=== PATIENT | female | born 1960 | race Caucasian/White ===

== ENCOUNTER → 2016-10-13 | Outpatient (CLI) | payer OTHER ==
[~2016-10-13] MED LIST: ADVAIR 250-501 EACH; ALBUTEROL17 GM; ALBUTEROL17 GM INH; ASPIRIN EC81 M1 PO; BACTRIM DS TABL1 TAB PO; COMBIVENT14.7 GM INH; FISH OIL300 MG PO; FLEXERIL10 MG PO; HYCODAN60 ML 5MG/ PO; HYDROCODON-ACE1 EAC4; HYDROCODONE PO; KLONOPIN1 MG PO; NEURONTIN300 MG; NICOTINE PATCH1 EACH TD; OXYGEN INH; PREDNISONE PO; PREDNISONE10 MG PO; PRINIVIL20 M1 PO; PROZAC PO; VITAMIN B12; VITAMIN D400 UNI2 PO; VOLTAREN50 MG PO; VOLTAREN75 MG PO; ZITHROMAX PO
--- NOTE | ~2016-10-13 | MY30 ---
[facility] A Service of [facility] RADIOLOGY TEXT RESULTS PATIENT: ALEX MORAN LOCATION: [facility] : 64 UNIT #: [id number] AGE: [address]: Robin Russell MD SEX: F ORDER DR: [id number] [address] [address] [id number] O MR#: [id number] Acc #: [id number] NAME: ALEX MORAN : 1960 SEX: F STUDY DATE/TIME: 10/13/2016 11:27 UNIT: [facility] ROOM: STUDY DESCRIPTION: MY SCREEN LETICIA BILAT DIGITAL Attending Physician: Robin Russell M.D. Referring Physician: Robin Russell M.D. Ordering Physician: Robin Russell M.D. Primary Care Physician: Robin Russell M.D. MEDICAL IMAGING REPORT This report is preliminary unless electronic signature is present. EXAM Digital screening mammogram, 10/13/2016, [facility]. HISTORY 56-year-old woman, no family history of breast cancer. History of ovarian cancer in mother, postmenopausal. Annual screen. COMPARISON Comparison mammograms date to 02/22/2009, with most recent screening comparison, 10/08/2015. FINDINGS Digital imaging of each breast was completed utilizing a two-view examination of each breast in craniocaudal and mediolateral-oblique projections. Review and interpretation of digital mammograms include a second review in conjunction with FDA-approved CAD device. There is a normal parenchymal presentation bilaterally consistent with the patient's age. There are no breast masses imaged and no parenchymal asymmetry is visualized. There are no suspicious microcalcifications and I see no focal architectural disturbance. IMPRESSION Negative screening digital mammogram. One-year followup recommended. Patients over the age of 40 are entered into a reminder system with target due date for the next mammogram. A result letter will also be sent to the patient. BIRADS: 1 Negative. [facility] A Service of [facility] RADIOLOGY TEXT RESULTS PATIENT: ALEX MORAN LOCATION: [facility] : 64 UNIT #: [id number] AGE: [address]: Robin Russell MD SEX: F ORDER DR: Dictated by... Oziel Castro M.D. THIS IS AN ELECTRONICALLY VERIFIED REPORT Oziel Castro M.D. at 10/14/2016 8:17 AM JANNA/jacinto TD: 10/13/2016 15:26 JOB #: [id number] MEDICAL IMAGING REPORT Page 1 of 1
== END | disposition home or self-care (01) ==
LOC: SMAM 10:46
DX: Z12.31 Encounter for screening mammogram for malignant neoplasm of breast (principal)
CPT/HCPCS: G0202